=== PATIENT | female | born 2000 | race Caucasian/White ===

== ENCOUNTER 2021-06-02 19:07 | Emergency (ER) | payer OTHER, SELFPAY ==
[2021-06-02 19:45] VITALS: BP 140/73; PULSE 85; RESP 16; TEMP 37.1; O2SAT 100
--- NOTE | 2021-06-02 20:00 | ED.LOWEXIN ---
HPI - Extremity Injury (Lower) General Chief Complaint: Extremity Injury, Lower Stated Complaint: Lt knee pain due to fall Source: patient and RN notes reviewed Limitations: no limitations History of Present Illness HPI Narrative: The obese patient, previously mostly healthy, presents with left knee discomfort. Patient states she slipped and fell 4 days ago from a standing position. She complains of mild pain that is worse with motion, better at rest, located anteriorly; no bleeding, deformity, prior injury. As x-rays closed here, advised patient to be nonweightbearing with crutches she has and return for x-ray tomorrow Related Data Allergies Allergy/AdvReac Type Severity Reaction Status Date / Time No Known Allergies Allergy Verified 06/02/21 19:53 Review of Systems Review of Systems: General/Constitutional: No weight loss,fever Eyes: N0: Redness,discharge Ears/Nose/Throat: No: Epistaxis,ear discharge Respiratory: Denies: Hemoptysis Gastrointestinal: No Vomiting, Bleeding-rectal Skin: No Lumps, eruption Neurologic: No Focal Weakness,Sz Hematologic: Denies: Petechiae/Purpura Psychiatric: No: Suicida ideationl All Other Systems: Reviewed and Negative PMFSH Comments At time of signature, agree with nursing past medical, surgical, social and family history. There is no relevant family history pertinent to the presenting complaint Exam Narrative: General Appearance: Well nourished /obese EYE: PERRLA, EOMI, Conjunctiva clear Ears: External ear normal, Auditory canal normal Nose: Normal nose, Nares clear Mouth/Throat: Normal appearing, Normal lips Neck: Supple Respiratory: Airway patent, No respiratory distress MS-knee: Normal strength (mostly intact, limited flexion/extension by pain), Tenderness (patellar, with mild decreased ROM), Scant swelling (patellar), Other (no anterior drawer, no collateral laxity, unable to do apprehension test) Skin: Warm, Dry, Normal color Neurological: A&O x3, Speech clear, CN II-XII intact Psychiatric: Normal mood, Normal affect Course Course Emergency Course: Films visualized, interpreted by radiologist, agree, normal see report. Vital Signs Vital signs: Vital Signs Temperature 98.7 F 06/02/21 19:45 Pulse Rate 85 06/02/21 19:45 Respiratory Rate 16 06/02/21 19:45 Blood Pressure 140/73 06/02/21 19:45 Pulse Oximetry 100 06/02/21 19:45 Temperature 98.7 F 06/02/21 20:14 Pulse Rate 85 06/02/21 20:14 Respiratory Rate 16 06/02/21 20:14 Blood Pressure 140/73 06/02/21 20:14 Pulse Oximetry 100 06/02/21 20:14 Discharge Plan Discharge Clinical Impression: Contusion of knee, left Qualifiers: Encounter type: initial encounter Qualified Code(s): S80.02XA - Contusion of left knee, initial encounter Patient Disposition: Home, Self-Care Condition: Stable Instructions: Knee Sprain (ED) Additional Instructions: You declined hospital referral for x-ray tonight; so Use the crutches you have, be nonweightbearing and return for x-ray tomorrow. You may also use OTC pain medicines Prescriptions: New tramadol 50 mg tablet 50 - 75 mg PO Q6H PRN (Reason: pain) Qty: 30 RF: 0 Follow-up/Referrals: PHYSICIAN,[employer] [facility] [Primary Care Provider] -
[2021-06-02 20:14] VITALS: BP 140/73; PULSE 85; RESP 16; TEMP 37.1; O2SAT 100
== END 2021-06-02 20:20 | disposition home or self-care (01) ==
PROVIDERS: Emergency Provider Emergency Medicine
DX: S80.02XA Contusion of left knee, initial encounter (principal); W01.0XXA Fall on same level from slipping, tripping and stumbling without subsequent striking against object, initial encounter
CPT/HCPCS: 73564; 99213; G0463

== ENCOUNTER → 2021-06-03 17:23 | Outpatient (CLI) | payer OTHER, SELFPAY ==
--- NOTE | ~2021-06-03 | XR_ITS ---
CORRECTED REPORT Changed report and images from [id number] to [id number] EXAMINATION: XR knee LT min 4V DATE: 06/03/2021 18:00 INDICATION: Left knee injury and pain. TECHNIQUE: 5 views of left knee were obtained. COMPARISON: None. FINDINGS: Bone alignment is normal. No fracture. Joint spaces are well maintained. There is no knee joint effusion. IMPRESSION: 1. Normal left knee. Reviewed, dictated and finalized at location [facility]. T [facility]
== END ==
PROVIDERS: PCP Emergency Medicine; Visit Provider Emergency Medicine
DX: M25.562 Pain in left knee (principal)
CPT/HCPCS: 73564

== ENCOUNTER 2023-03-19 12:16 | Emergency (ER) | payer BC, SELFPAY ==
[2023-03-19 12:28] VITALS: BP 127/73; PULSE 96; RESP 16; TEMP 36.8; O2SAT 100
--- NOTE | 2023-03-19 12:57 | ED.URI ---
HPI - URI/Sore Throat General Chief Complaint: Upper Respiratory Infection Stated Complaint: Sore Throat Time Seen by Provider: 03/19/23 12:52 Source: patient and RN notes reviewed Mode of arrival: ambulatory Limitations: no limitations History of Present Illness HPI Narrative: This patient presents today complaining of a sore throat since yesterday with radiation to the right ear. Denies any additional symptoms to include fever, cough, congestion, rhinorrhea. Currently rates her pain 6/10 and has been taking ibuprofen with mild relief. Denies sick contacts. Related Data Home Medications Medication Instructions Recorded Confirmed No Home Medications 03/19/23 03/19/23 Allergies Allergy/AdvReac Type Severity Reaction Status Date / Time clavulanic acid AdvReac Gastrointestinal Verified 03/19/23 12:48 [From Augmentin] Upset Review of Systems Review of Systems: CONSTITUTIONAL: Denies body aches, fever, chills, or sweats. EYES: Denies visual changes, redness, or discharge. ENT: Denies rhinorrhea, congestion. + sore throat, right ear pain CARDIOVASCULAR: Denies chest pain, palpitations, or edema. RESPIRATORY: Denies cough or dyspnea. GASTROINTESTINAL: Denies abdominal pain, nausea, vomiting, or diarrhea. GENITOURINARY: Denies dysuria or hematuria. SKIN: Denies rash, itching, or wounds. MUSCULOSKELETAL: Denies back pain, joint pain, or myalgia. NEUROLOGIC: Denies headache, numbness, tingling, or weakness. PSYCH: Denies depression or anxiety. PMFSH Comments At time of signature, I have reviewed and agree with nursing past medical, surgical, social and family history unless otherwise noted. Please see nursing chart for further information. There is no relevant family history pertinent to the presenting complaint Exam Narrative: GENERAL: Well-appearing, well-nourished, and in no acute distress. HEAD: Normocephalic, atraumatic. EYES: EOMI. No redness or drainage. Conjunctivae normal. ENT: Mucous membranes pink and moist. Nares clear. No rhinorrhea. TMs normal bilaterally. Throat mildly erythematous. Tonsils 2+ with white exudate. Uvula midline. NECK: Normal AROM. Supple. No lymphadenopathy. CHEST: No respiratory distress. Clear to auscultation. HEART: Regular rate and rhythm. No murmur appreciated. Normal peripheral pulses. EXTREMITIES: Normal range of motion. No edema. SKIN: Warm, dry, no rash. Capillary refill normal. Normal skin turgor. NEURO: No focal deficits. Alert and oriented x3. Gait steady. PSYCH: Normal affect. No signs of depression or anxiety. Course Course Level of Care: Express Care Visit Vital Signs Vital signs: Vital Signs Temperature 98.2 F 03/19/23 12:28 Pulse Rate 96 03/19/23 12:28 Respiratory Rate 16 03/19/23 12:28 Blood Pressure 127/73 03/19/23 12:28 Pulse Oximetry 100 03/19/23 12:28 Oxygen Delivery Room Air 03/19/23 12:28 Temperature 98.2 F 03/19/23 12:28 Pulse Rate 96 03/19/23 12:28 Respiratory Rate 16 03/19/23 12:28 Blood Pressure 127/73 03/19/23 12:28 Pulse Oximetry 100 03/19/23 12:28 Oxygen Delivery Room Air 03/19/23 12:28 Reviewed. Pt has been instructed to follow up with her PCP regarding her elevated blood pressure today. MDM - URI/Sore Throat MDM Narrative Medical decision making narrative: Rapid strep negative. Culture pending. Symptoms likely viral. No prescription medications indicated at this time. Anticipatory guidance given. Differential Diagnosis Differential diagnosis: Likely upper respiratory infection, otitis media, viral infection, pharyngitis and other (Strep throat) Lab Data Attestation: I reviewed the patient's lab results. Labs: Strep Screen Presumptive Negative *(Reference Range: Negative)* Critical Care Time Critical Care Time Critical Care Time: No Discharge Plan Discharge Clinical Impression: Acute viral phar
== END 2023-03-19 13:05 | disposition home or self-care (01) ==
PROVIDERS: Emergency Provider Nurse Practitioner; PCP Nurse Practitioner Family
DX: J02.9 Acute pharyngitis, unspecified (principal)
CPT/HCPCS: 87081; 87880; 99213; G0463